=== PATIENT | female | born 1965 | race Caucasian/White ===

== ENCOUNTER → 2017-11-03 | Outpatient (CLI) | payer OTHER | LOC: RAD 13:14 | DX: Z12.31 Encounter for screening mammogram for malignant neoplasm of breast (principal) ==

== ENCOUNTER → 2017-11-14 | Outpatient (CLI) | payer OTHER | LOC: NUC 09:43 | DX: M85.89 Other specified disorders of bone density and structure, multiple sites (principal); Z78.0 Asymptomatic menopausal state ==

== ENCOUNTER → 2018-02-05 | Outpatient (CLI) | payer OTHER ==
[~2018-02-05] MED LIST: CALCIUM 600 +1 EAC1 PO; CENTRUM SILVER1 EAC4 PO; FISH OIL 1,001000 M2 PO; GLUCOSAMINE &1 EACH PO; VITAMIN D1000 UNI1 PO; ZYRTEC10 M5 PO
== END ==
LOC: ULTRA 13:22
DX: N63.20 Unspecified lump in the left breast, unspecified quadrant (principal)

== ENCOUNTER → 2018-02-13 | Outpatient (CLI) | payer OTHER | LOC: NUC 13:43 | DX: C43.52 Malignant melanoma of skin of breast (principal) ==

== ENCOUNTER 2018-02-19 05:30 | Day surgery (SDC) | payer OTHER ==
[~2018-02-19] VITALS: Ht 170.2 cm; Wt 78.0 kg
--- NOTE | ~2018-02-19 | PATH ---
[facility] [address] [place] [address] PATHOLOGY RPT PROCEDURE Name: CASI SINGH Room #: DEP [facility] M.R.#: [id number] Admission: 02/19/18 Date of : 63 Discharge: 02/19/18 Report #: [id number] Path Case #: [id number] [facility] Accession Number: [id number] . 01 Material submitted: . PART A: MELANOMA-LEFT CHEST, LONG STITCH-LATERAL, SHORT STITCH-SUPERIOR PART B: LEFT AXILLARY SENTINEL LYMPH NODE #1, STITCH ZHANG LYMPH NODE . 01 Clinical history: . Chest wall melanoma . 02 Diagnosis: A. Skin, left chest, excisional biopsy: - Minute focus of basal cell carcinoma superficial type completely excised. - Previous biopsy site changes. - No residual melanoma is seen. - Mildly dysplastic junctional nevus completely excised - Incidental junctional and compound nevus completely excised. - Incidental Seborrheic keratosis. - See comment. B. Lymph node (1) "axillary sentinel lymph node": - Negative for malignancy. - Immunoperoxidase stains S100, HMB45, and MART-1 red did not reveal any malignant cells and are negative. . (SHA:jenny; 02/25/2018) . . QMS/02/25/2018 . 02 Comment: Part A of this case is also reviewed by Dermatopathologist Dr. Caroline Santiago. . 02 Electronically signed: . Marvin Rodriguez MD, Pathologist NPI- [id number] . 01 Gross description: . A. The specimen is received in formalin, labeled "Casi Singh, melanoma left chest, long lateral, short superior". Received is an oriented ellipse of skin measuring 7.0 x 4.9 x 2.3 cm in greatest dimensions with a short suture placed along one edge designating this as the superior margin, which will further be designated as the 12:00 position, and a long suture placed at one tip designating this as the lateral margin, which will further be designated as the 3:00 position. The surgical margins are inked as follows: 12 to 3:00-yellow, 3 to 9:00-black, and 9 to 12:00-blue. [address] [address] PATHOLOGY RPT PROCEDURE Name: CASI SINGH Room #: DEP [facility] M.R.#: [id number] Admission: 02/19/18 Date of : 63 Discharge: 02/19/18 Report #: [id number] Path Case #: [id number] The epidermal surface displays a poorly circumscribed, irregular in contour and pale jhaveri previous biopsy site measuring 1.0 x 1.0 cm. This site is 1.1 cm from the 12:00 margin, 2.7 cm from the 3:00 margin, 1.0 cm from the 6:00 margin, and 2.3 cm from the 9:00 margin. The previous biopsy site is surrounded by a large amount of residual blue dye. Sectioning reveals bright yellow, lobulated cut surfaces throughout with no grossly apparent abnormal pigmentation. The specimen is submitted representatively as follows: . A1 longitudinal section through 3:00 and 9:00 tip A2-A9 entire previous biopsy site submitted from 3:00 to 9:00 aspects, with each segment additionally bisected and to 12:00 and 6:00 aspects. . B. The specimen is received in formalin, labeled "Casi Singh, left axillary sentinel lymph node #1, blue no, count 45, stitch zhang lymph node". Received is a segment of bright yellow lobulated tissue measuring 3.2 x 2.2 x 1.5 cm in greatest dimensions. Sectioning reveals a single lymph node measuring 0.5 cm in maximum dimensions. The lymph node is bisected and entirely submitted in cassette B1. Immunohistochemical stains are ordered. (CAA; 02/20/2018) QAC/QAC . 02 Microscopic: . . . 02 Pathologist provided ICD-10: C44.519 . 02 CPT . 063517, 875330, [id number], [id number] Specimen Comment: A courtesy copy of this report has been sent to Specimen Comment: [phone], . Specimen Comment: Report sent to / DR KEENE Performed at: [address] [facility], [place], [place] [id number] MD Avery Ignacio MD Phone: [phone] Performed at: [address] [id number] MD Liss Hernandez MD Phone: [phone]
[2018-02-19 08:17] VITALS: BP 116/66
[2018-02-19 13:53] VITALS: BP 116/66
== END 2018-02-19 14:20 | disposition home or self-care (01) ==
LOC: TBA 05:30 → OR 05:30 → NUC 15:25 → EDSTATUS 15:26 → OR 15:27
DX: C44.519 Basal cell carcinoma of skin of other part of trunk (principal); Z88.8 Allergy status to other drugs, medicaments and biological substances; Z91.041 Radiographic dye allergy status; Z79.899 Other long term (current) drug therapy; Z87.891 Personal history of nicotine dependence; Z90.49 Acquired absence of other specified parts of digestive tract; Z90.710 Acquired absence of both cervix and uterus; Z98.890 Other specified postprocedural states
CPT/HCPCS: 50010; 50101; 50386; 50403; 54118; 56525; 56526; 56805; 62110; 62850; 70005

== ENCOUNTER → 2018-11-17 | Outpatient (CLI) | payer OTHER | LOC: ULTRA 09:11 | DX: R14.0 Abdominal distension (gaseous) (principal); Z90.711 Acquired absence of uterus with remaining cervical stump; Z90.722 Acquired absence of ovaries, bilateral ==

== ENCOUNTER 2018-12-01 14:59 | Emergency (ER) | payer OTHER ==
[~2018-12-01] VITALS: Ht 170.2 cm; Wt 79.4 kg
[2018-12-01] MEDS ORDERED: ULTRAM 50MG TAB50 MG PO (18:00)
[2018-12-01 18:46] VITALS: BP 117/77
== END 2018-12-01 18:15 | disposition home or self-care (01) ==
LOC: ER 14:59
DX: R07.81 Pleurodynia (principal); Z85.828 Personal history of other malignant neoplasm of skin; Z90.49 Acquired absence of other specified parts of digestive tract; Z90.710 Acquired absence of both cervix and uterus; Z90.89 Acquired absence of other organs; Z91.041 Radiographic dye allergy status; Z88.1 Allergy status to other antibiotic agents; Z87.891 Personal history of nicotine dependence

== ENCOUNTER → 2018-12-15 | Outpatient (CLI) | payer OTHER ==
[~2018-12-15] MED LIST changes: +ULTRAM 50MG TAB50 MG PO
== END ==
LOC: MRI 09:54
DX: Z12.31 Encounter for screening mammogram for malignant neoplasm of breast (principal); M51.36 Other intervertebral disc degeneration, lumbar region; M47.816 Spondylosis without myelopathy or radiculopathy, lumbar region

== ENCOUNTER → 2018-12-17 | Outpatient (CLI) | payer OTHER | LOC: ULTRA 00:41 | DX: N60.01 Solitary cyst of right breast (principal) ==

== ENCOUNTER → 2018-12-22 | Outpatient (CLI) | payer OTHER | LOC: CAT 09:32 | DX: K76.9 Liver disease, unspecified (principal); N83.8 Other noninflammatory disorders of ovary, fallopian tube and broad ligament ==

== ENCOUNTER → 2019-02-25 | Outpatient (CLI) | payer OTHER | LOC: ULTRA 08:08 | DX: N94.89 Other specified conditions associated with female genital organs and menstrual cycle (principal); Z90.710 Acquired absence of both cervix and uterus; Z90.722 Acquired absence of ovaries, bilateral ==

== ENCOUNTER → 2020-01-03 | Outpatient (CLI) | payer OTHER | LOC: RAD 08:13 | PROVIDERS: ATTEND Nurse Practitioner | DX: Z12.31 Encounter for screening mammogram for malignant neoplasm of breast (principal) ==

== ENCOUNTER → 2021-01-29 | Outpatient (CLI) | payer OTHER | LOC: NUC 10:17 | PROVIDERS: ATTEND Nurse Practitioner | DX: Z12.31 Encounter for screening mammogram for malignant neoplasm of breast (principal); M85.88 Other specified disorders of bone density and structure, other site; N64.89 Other specified disorders of breast ==